=== PATIENT | female | born 1955 | race Caucasian/White ===

== ENCOUNTER 2021-01-22 07:04 | Inpatient (IN) ==
--- NOTE | 2020-12-26 09:41 | PAT Medication Instructions ---
Medication Instructions Date of Service December 26, 2020 Home Medications albuterol 90 mcg INHALATION Q4H PRN atorvastatin 10 mg PO HS bupropion HCl [Wellbutrin XL] 150 mg PO HS bupropion HCl [Wellbutrin XL] 300 mg PO HS calcium carbonate-vitamin D3 [Calcium 500 + D (D3)] 1 tab PO QAM docusate sodium [Colace] 100 mg PO HS fexofenadine 180 mg PO HS fluoxetine 10 mg PO HS fluoxetine 40 mg PO HS fluticasone propion-salmeterol [Advair Diskus] 1 inh INHALATION BID PRN mometasone [Nasonex] 2 spray INTRANASAL DAILY PRN montelukast 10 mg PO HS risedronate [Actonel] 150 mg PO WK Continue as directed risedronate [Actonel] 150 mg PO WK DO NOT take the morning of surgery calcium carbonate-vitamin D3 [Calcium 500 + D (D3)] 1 tab PO QAM Take morning of surgery With a small sip of water, OTHERWISE NOTHING TO EAT OR DRINK AFTER MIDNIGHT: albuterol 90 mcg INHALATION Q4H PRN (use if needed; please bring rescue inhaler with you to hospital day of surgery if possible) fluticasone propion-salmeterol [Advair Diskus] 1 inh INHALATION BID PRN (if needed) mometasone [Nasonex] 2 spray INTRANASAL DAILY PRN (if needed) Take evening before surgery albuterol 90 mcg INHALATION Q4H PRN (if needed) atorvastatin 10 mg PO HS bupropion HCl [Wellbutrin XL] 150 mg PO HS bupropion HCl [Wellbutrin XL] 300 mg PO HS docusate sodium [Colace] 100 mg PO HS fexofenadine 180 mg PO HS fluoxetine 10 mg PO HS fluoxetine 40 mg PO HS fluticasone propion-salmeterol [Advair Diskus] 1 inh INHALATION BID PRN (if needed) mometasone [Nasonex] 2 spray INTRANASAL DAILY PRN (if needed) montelukast 10 mg PO HS Other Notes If you have any questions please call us at [phone] or [phone] or [phone] or [phone]
--- NOTE | 2020-12-28 09:48 | Anesthesiology Consultation ---
Date of Service December 28, 2020 Assessment & Plan (1) Encounter for pre-operative examination: COVID screening: Per assessment on 12/28: Travel screen negative, no known COVID- 19 positive contacts or current COVID-19 related symptoms. Patient vaccinated. Surgeon arranging preop COVID testing. Awaiting results. Chart Review Chart Review: Acceptable Risk for Surgery (pending preop labs (being done at [facility])) and Patient seen in Pre Admission Testing Teaching & Discussion Pre-Anesthesia Teaching/Discussion Notes: Instructed NPO after midnight before surgery,except medications with 15 cc of water. Medication instructions provided according to the PAT guidelines. History Surgery Operation Date: 01/22/21 11:10 Proposed Procedures p Right Total Knee Arthroplasty - Bowen Cortez DO Height/Weight Height: 5 ft 3 in Weight: 85.4 kg Allergies Allergy/AdvReac Type Severity Reaction Status Date / Time ciprofloxacin [From Cipro] Allergy Severe Dizziness, Verified 12/28/20 10:11 emotional, "felt drunk" fentanyl Allergy Severe Itching Verified 12/27/20 16:24 codeine AdvReac Intermediate Hallucinati Verified 12/27/20 16:24 ons metronidazole AdvReac Unknown Dizziness, Verified 12/27/20 16:24 emotional Medications Home Medications Medication Instructions Recorded Confirmed Last Taken albuterol 90 mcg INHALATION Q4H PRN 12/26/20 12/26/20 Unknown atorvastatin 10 mg PO HS 12/26/20 12/26/20 Unknown bupropion HCl [Wellbutrin XL] 150 mg PO QAM 12/26/20 12/28/20 Unknown bupropion HCl [Wellbutrin XL] 300 mg PO QAM 12/26/20 12/28/20 Unknown calcium carbonate-vitamin D3 1 tab PO QAM 12/26/20 12/26/20 Unknown [Calcium 500 + D (D3)] docusate sodium [Colace] 100 mg PO HS 12/26/20 12/26/20 Unknown fexofenadine 180 mg PO HS 12/26/20 12/26/20 Unknown fluoxetine 10 mg PO HS 12/26/20 12/26/20 Unknown fluoxetine 40 mg PO HS 12/26/20 12/26/20 Unknown fluticasone propion-salmeterol 1 inh INHALATION BID PRN 12/26/20 12/26/20 Unknown [Advair Diskus] mometasone [Nasonex] 2 spray INTRANASAL DAILY PRN 12/26/20 12/26/20 Unknown montelukast 10 mg PO HS 12/26/20 12/26/20 Unknown risedronate [Actonel] 150 mg PO WK 12/26/20 12/26/20 Unknown Past Medical History Medical History Anxiety Depression Diaphragm injury Abdominal diaphragm puncture after a fall from counter (2011) s/p surgical repair Diverticular disease hx diverticulitis s/p bowel resection Hyperlipidemia Mild heartburn Obesity Osteopenia Seasonal asthma controlled Exercise / Class Metabolic Activity II 4-5 Yardwork/Stairs/Walk up hill (one FS (no CP, no SOB)) Past Family History Family History Other No family history of adverse response to anesthesia Past Surgical History Surgical History H/O kyphoplasty L2 kyphoplasty for fracture repair (01/2020 at [facility]) History of appendectomy History of bowel resection ~2009 History of colonoscopy History of laparotomy to repair a puncture of the diaphragm (2011 at [facility]) History of tonsillectomy S/P ERIK (total abdominal hysterectomy) with unilateral salping-oopherectomy Past Anesthesia History No Family Hx of Anesthesia Complications and Other Patient reports typically has low-normal BP. Patient states that she has been told post-operatively that she has had lower BP findings. Per patient, was monitored but no significant interventions needed. History of PONV No Hx of PONV and Hx of Motion Sickness (+ boats) Social History Smoking Status: Never smoker Do You Dip or Chew Tobacco: No Hx Alcohol Use: Yes Alcohol type: beer alcohol intake frequency: a few times a month Hx Substance Use: No substance use type: does not use Review of Systems Patient denies chest pain, shortness of breath, dyspnea on exertion, fever, chills, cough, wheezing, palpitations. Physical Exam Vital Signs VITALS BP 111/73 P 88 TEMP 98.3 SP02 95%RA RESP 18 PHYSICAL Full cervical extension range of motion. Full TMJ range of motion. TMD 2.5 finger breaths Mallampati Score 3 Dentition: intact, several crowns Lungs: clear throughout to auscultation Cardiac: regular rate and rhythm, no murmurs noted Spine: normal Carotid arteries: negative bruit Extremities: no edema Lab Results Anesthesia Preop Results Results Anesthesia Widget: Blood Type O Negative 12/28/20 Antibody Screen NEGATIVE 12/28/20 Testing Electrocardiogram Date: 12/28/20 Findings: + NSR @ (86) Chest X-Ray Date: 12/28/20 Atelectasis or scarring within left mid to lower lung. Compression fracture deformity within upper lumbar region, possible status post vertebroplasty. Please correlate above-mentioned findings with prior history. Known hx of recent L2 kyphoplasty fracture repair. Report to be forwarded to PCP for continuity of care.
--- NOTE | 2021-01-02 17:10 | History & Physical Report ---
Date of Service January 02, 2021 date of surgery: 01/22/21 Procedure: Right Total Knee Arthroplasty Assessment & Plan (1) Arthritis of right knee: Further care discussed with patient and at this point in time has failed conservative measures and would like to proceed with a right total knee r eplacement. Plan on discharge will be home with home health physical therapy. DVT prophalaxis with TEDs, SCDs and will also place on aspirin 81 mg p.o. b.i.d. for a month postop. Patient will have follow up appointment in our office two weeks post op for staple/suture removal and re-evaluation. Patient otherwise has no other questions or concerns. The risks and benefits have been discussed including, but not limited to, risk of infection, nerve injury, stiffness, loss of motion, failure to improve, etc. Reasonable outcomes and options of treatment were discussed. An explanation of appropriate alternatives to the procedure that may be advantageous were discussed and their risks and benefits, as well as the risks and benefits of not proceeding with treatment. I offered to answer any additional inquiries concerning the treatment involved. All the patient's questions were answered. The patient is agreeable, understanding of the treatment plan and alternatives, and wishes to proceed with the treatment plan. History of Present Illness Chief Complaint: Right knee pain Primary Care Provider: Mariano Fitzgerald MD Anh is a 65 year old female who complains of right knee pain, presents for pre-op evaluation prior to a right total knee replacement by Dr Cortez at [facility]. she complains of pain, decreased range of motion, instability and stiffness in her right knee. Currently the patient states that the symptoms are moderate- severe and is rated at 5/10. The pain is described as aching, sharp and throbbing. her symptoms are aggravated by ascending stairs, daily activities, first steps while awake walking. Prior NSAIDs include Motrin and has used Tylenol in the past. she has been treated with previous cortisone injections in the past without much relief. she has done PT as well as used a brace. Allergies Allergy/AdvReac Type Severity Reaction Status Date / Time ciprofloxacin [From Cipro] Allergy Severe Dizziness, Verified 12/28/20 10:11 emotional, "felt drunk" fentanyl Allergy Severe Itching Verified 12/27/20 16:24 codeine AdvReac Intermediate Hallucinati Verified 12/27/20 16:24 ons metronidazole AdvReac Unknown Dizziness, Verified 12/27/20 16:24 emotional Home Medications Medication Instructions Recorded Confirmed Type albuterol 90 mcg INHALATION Q4H PRN 12/26/20 12/26/20 History atorvastatin 10 mg PO HS 12/26/20 12/26/20 History bupropion HCl [Wellbutrin XL] 150 mg PO QAM 12/26/20 12/28/20 History bupropion HCl [Wellbutrin XL] 300 mg PO QAM 12/26/20 12/28/20 History calcium carbonate-vitamin D3 1 tab PO QAM 12/26/20 12/26/20 History [Calcium 500 + D (D3)] docusate sodium [Colace] 100 mg PO HS 12/26/20 12/26/20 History fexofenadine 180 mg PO HS 12/26/20 12/26/20 History fluoxetine 10 mg PO HS 12/26/20 12/26/20 History fluoxetine 40 mg PO HS 12/26/20 12/26/20 History fluticasone propion-salmeterol 1 inh INHALATION BID PRN 12/26/20 12/26/20 History [Advair Diskus] mometasone [Nasonex] 2 spray INTRANASAL DAILY PRN 12/26/20 12/26/20 History montelukast 10 mg PO HS 12/26/20 12/26/20 History risedronate [Actonel] 150 mg PO WK 12/26/20 12/26/20 History Past Med/Surg History Medical History Anxiety Depression Diaphragm injury Abdominal diaphragm puncture after a fall from counter (2011) s/p surgical repair Diverticular disease hx diverticulitis s/p bowel resection Hyperlipidemia Mild heartburn Obesity Osteopenia Seasonal asthma controlled Surgical History H/O kyphoplasty L2 kyphoplasty for fracture repair (01/2020 at [facility]) History of appendectomy History of bowel resection ~2009 History of colonoscopy History of laparotomy to repair a puncture of the diaphragm (2011 at [facility]) History of tonsillectomy S/P ERIK (total abdominal hysterectomy) with unilateral salping-oopherectomy Family History Other No family history of adverse response to anesthesia Social History Smoking Status: Never smoker Second Hand Exposure: No; Hx Alcohol Use: Yes Alcohol type: beer Hx Substance Use: No Preferred Language: Serbian Communication Ability: Effective Administrative Aide Required: No Beliefs That Will Affect Care: Faith Faith Beliefs: buddhist Current Living Situation: Spouse Feels Safe at Home: Yes Assistive Devices: Glasses Review of Systems Review of Systems: All systems reviewed & are unremarkable except as noted in HPI & below Constitutional: no fever, no chills and no sweats Respiratory: no cough and no dyspnea Cardiovascular: no chest pain, no dyspnea and no orthopnea Gastrointestinal: no abdominal pain, no nausea and no vomiting Musculoskeletal: as per Subjective / HPI Physical Exam Physical Exam: HT: 5ft 3in WT: 85.4kg Constitutional: WD/WN, vitals as above no acute distress Respiratory: normal respiratory effort, lungs clear to auscultation no res piratory distress, no labored breathing and does not use accessory muscles Cardiovascular: RRR, no murmur, no edema Gastrointestinal (Abdomen): normal bowel sounds, soft, nontender, no hepatosplenomegaly Musculoskeletal: Knee: + knee abnormal to inspection (Right Knee- ), + effusion (+1 effusion), + limited ROM of knee (ROM 0/3/110), + knee ROM with crepitation, + joint line tenderness (medial joint line) and + Alin's sign positive; no deformity, no skin erythema, no ecchymosis, no valgus laxity, no varus laxity, anterior drawer test negative, Anderson's sign negative and pivot shift test negative Results & Data Results & Data ([facility]) Diagnostic Findings Right Knee X-ray: Right knee series showing advanced degenerative changes to the right knee, narrowing of the joint space with bone spurring noted, findings showing joint space narrowing of the medial compartment and patello-femoral joint, osteophyte formation and subchondral sclerosis noted. overall varus alignment. no acute bony pathology noted.
[~2021-01-22 07:04] MED LIST: ACETAMINOPHEN 500 MG TAB PO SCH; BUPIVACAINE 0.25% 30 ML VIAL ONE; BUPIVACAINE 0.5 % 5 MG/1 ML PF 10ML VIAL ONE; CeleBREX 200 MG CAP PO SCH; EPINEPHrine INJ 1 MG/ML AMP ONE; FAMOTIDINE 20 MG TAB PO SCH; GABAPENTIN 300 MG CAP PO SCH; LR 500ML BOLUS, THEN 15ML/HR IV SCH; METOCLOPRAMIDE HCL 10 MG TABLET PO SCH; ROPIVACAINE 0.5% HCL/PF 150 MG, BUPIVACAINE 0.75% MPF 20 ML, EPINEPHrine 30MG/30ML (OR ... INFIL SCH; TRANEXAMIC ACID 1,000 MG **IV Intra-op IV SCH; TRANEXAMIC ACID 1,000 MG **IV Pre-op IV SCH; ceFAZolin 2000MG 2,000 MG/15 ML SYR IV SCH; oxyCODONE HCL 10 MG TABCR (OxyCONTIN) PO SCH
--- NOTE | 2021-01-22 08:37 | History & Physical Bridge Note ---
Date of Service January 22, 2021 History & Physical Bridge Note I have examined the patient, reviewed the History & Physical and in the interval since the performance of the History & Physical I have noted the following changes of clinical significance: no changes noted
[2021-01-22] MEDS ORDERED: LIDOCAINE 2% 2 ML VIAL/AMP(20MG/ML) INFIL ONE (08:55)
[2021-01-22] MEDS ORDERED: PROPOFOL IV EMULSION 10 MG/ML 20 ML VIAL IV ONE (08:55)
[2021-01-22] MEDS ORDERED: MIDAZOLAM HCL 1 MG/ML 2ML VIAL ONE (08:55)
[2021-01-22] MEDS ORDERED: ORTHO JOINT ANESTHETIC ONE (09:12)
[2021-01-22] MEDS ORDERED: BUPIVACAINE 0.25% 30 ML VIAL ONE (09:20)
[2021-01-22] MEDS ORDERED: ATROPINE SULFATE 0.1 MG/ML 10ML SYR IV PRN (09:23)
[2021-01-22] MEDS ORDERED: HYDROmorphone INJ 2 MG/ML SYR/VIAL IV PRN (09:23)
[2021-01-22] MEDS ORDERED: ePHEDrine sulfate 50 MG/ML AMP IV PRN (09:23)
[2021-01-22] MEDS ORDERED: ONDANSETRON INJ 2 MG/ML 2 ML VIAL IV PRN ×2 (09:23→12:37)
--- NOTE | 2021-01-22 10:44 | Operative Report ---
Post Operative Report Pre & Post Diagnosis Operation Date: 01/22/21 09:15 Pre-Op Diagnosis: Right Knee Osteoarthritis Post-Op Diagnosis: Right Knee Osteoarthritis I identified the patient and participated in the time-out.: Yes Procedure Operation Date: 01/22/21 09:15 Actual Procedures p Right Total Knee Arthroplasty(Right) utilizing [employer] persona 8 narrow femur C tibia 10 medial constrained polytwenty 8 oval patella- Bowen Cortez DO Surgeon Bowen Cortez DO [employer] AMBROSE Estimated Blood Loss 5 Findings Consistent with Post-Op Diagnosis Patient presents with severe end-stage tricompartmental degenerative joint disease [id number] eburnated bone subchondral sclerosis marginal osteophytes moderate to large effusion Specimens Bone and cartilage Drains Medium bore Hemovac Anesthesia Type MAC Spinal Regional Disposition Accompanied Patient To Recovery: No Disposition: Recovery Room Indications Patient presents with severe end-stage DJD failing attempted conservative management clinic physical therapy anti-inflammatories relative rest activity modification corticosteroid injection viscosupplementation the above intraoperat amor findings were noted Description of Procedure After proper prepping and draping of the Right lower extremity anterior midline incision was made over the region of the extensor extensor mechanism after meticulous hemostasis was obtained and maintained in subcutaneous tissues a medial parapatellar incision was made The patella was subluxed lateralward the medial lateral gutter were cleaned from any hypertrophic synovitis and scar tissue of the distal femoral block was placed and the distal femoral osteotomy cut was made subsequently the chamfers anterior and posterior osteotomy cuts were made utilizing the 4-in-1 block the tibia was subsequently subluxed anteriorward medial and ateral meniscal remnants were excised in their entirety remnants of the anterior and posterior cruciate ligaments were excised in their entirety excellent exposure of the proximal tibia was obtained the tibial osteotomy guide was placed on the proximal tibial osteotomy cut was made once again the knee was irrigated with copious amounts of sterile saline solution the patella was subsequently everted lateralward thickened scar tissue around the patella was removed the patella was subsequently cut utilizing a freehand technique and was drilled prepared for final preparation and placement of patella socially flexion-extension gaps were checked and the equal and symmetric trials were placed to the appropriate femoral and tibial trials with poly-spacer being placed for equal flexion and extension gaps and full range of motion including extension to 0 and flexion to 140 the trial components after having been taken to recovery range of motion was subsequently removed meticulous hemostasis was obtained and maintained subsequently a knee block injection of joint cocktail including ropivacaine 0.5% 150 mg. Bupivacaine 0.5% epinephrine 1-200,030 mL's toradol 30 mg dexamethasone 4 mg ketamine 10 mg clonidine 100 micrograms normal saline solution 30 mg was infiltrated into the soft tissues of the posterior knee medial lateral gutters and periosteal synovium special attention was paid to protect neurovascular structures at all times subsequently trial components having been removed the knee was irrigated with sterile saline solution. debris was removed the proximal tibia was subsequently prepared and was made ready for the placement of the tibial component tibial component was also cemented and tamped into position the femoral component was subsequently placed and cemented in the position the patellar component was subsequently cemented in position because hemostasis once again obtained and maintained wound having been thoroughly irrigated with debridement and debridement lavage was performed as well as a medial parapatellar incision closed with #1 Vicryl in interrupted fashion subcutaneous was closed with #2 Vicryl skin was closed with skin clips. PA-C was necessary for prepping and drapping as well as wound closure of deep fascia Sub cutaneous tissue and skin and was necessary for the case. A sterile compressive dressing was placed patient was taken to recovery in stable condition of report dictated by Diego I attest to the content of the Intraoperative Record and any orders documented therein. Any exceptions are noted below. I attest to the content of the Intraoperative Record and any orders documented therein. Any exceptions are noted below.
--- NOTE | 2021-01-22 12:02 | XRay Report ---
XR knee RT 1 or 2V routine HISTORY: 65 years-old Female Surgical Post Op right knee total joint arthroplasty COMPARISON: None TECHNIQUE: 2 views the right knee FINDINGS: Right knee total joint arthroplasty and patella resurfacing. Surgical drainage catheter with expected postoperative soft tissue swelling and deep tissue air. No acute fracture, alignment or unexpected o paque foreign body. IMPRESSION: Right knee total joint arthroplasty with expected postoperative changes. ACT 112: Negative or not required by law. The above report was generated using voice recognition software. It may contain grammatical, syntax o r spelling errors. Electronically signed by: Kieran Babin M.D. 01/22/2021 12:01 PM
[2021-01-22] MEDS ORDERED: diphenhydrAMINE Capsule 25 MG CAP PO PRN (12:37)
[2021-01-22] MEDS ORDERED: HYDROmorphone INJ 1 MG/ML SYRINGE IV PRN (12:37)
[2021-01-22] MEDS ORDERED: METOCLOPRAMIDE HCL INJ 5 MG/ML 2 ML VIAL IV PRN (12:37)
[2021-01-22] MEDS ORDERED: NALOXONE HCL 0.4 MG/1 ML VIAL/CARP IV PRN (12:37)
[2021-01-22] MEDS ORDERED: RISEDRONATE 150 MG PO SCH (12:37)
[2021-01-22] MEDS ORDERED: MAGNESIUM HYDROXIDE SUSP 30 ML UDC PO PRN (12:37)
[2021-01-22] MEDS ORDERED: SODIUM CHLORIDE 0.9% 1000ML 1,000 ML IV SCH (12:37)
[2021-01-22] MEDS ORDERED: bisacodyL 10 MG SUPP PR PRN (12:37)
[2021-01-22] MEDS ORDERED: ALBUTEROL HFA 8 GM INHALER INH PRN (12:40)
--- NOTE | 2021-01-22 12:48 | History & Physical Report ---
Date of Service January 22, 2021 Assessment & Plan (1) S/P total knee arthroplasty: This is a 65yo F with a PMH of dyslipidemia, depression, osteoarthritis and other medical problems listed below who is POD #0 s/p R TKA by Dr. Cortez. POD #0 s/p R TKA by Dr. Cortez Per ortho for pain control, wound care, anticoagulation and activities Monitor H&H (EBL: 5ml, pre-op hgb 13.9) Continue incentive spirometry, PT/OT when appropriate (2) Asthma: Stable. Continue Singulair,Advair, Albuterol inh PRN (3) Depression: Continue fluoxetine, Wellbutrin (4) Hyperlipidemia: Continue atorvastatin PCP: Luke Dispo: Per ortho Patient seen in collaboration with Dr. Elias. Please see addendum. Thank you for this consultation. We will follow the patient with you during their hospital stay. You can reach a [facility] via [place] Text. Admission and Anticipated Discharge Date Admission Date: January 22, 2021 History of Present Illness Chief Complaint: post op med mgmt Primary Care Provider: Artem Butler MD This is a 65yo F with a PMH of dyslipidemia, depression, osteoarthritis and other medical problems listed below who is POD #0 s/p R TKA by Dr. Cortez. Currently resting comfortably postoperatively. Tolerated lunch without issue. Denies any knee pain or paresthesias 2/2 effects of spinal anesthesia. Denies any fever, chills, lightheadedness, headache, chest pain, shortness of breath, nausea, vomiting, abdominal pain, dysuria, diarrhea constipation. Has not yet voided post operatively. Took all medications this morning without issue prior to surgery. Follows with Dr. Butler in outpatient setting. Allergies Allergy/AdvReac Type Severity Reaction Status Date / Time ciprofloxacin [From Cipro] Allergy Severe Dizziness, Verified 01/22/21 07:28 emotional, "felt drunk" fentanyl Allergy Severe Itching Verified 01/22/21 07:28 codeine AdvReac Intermediate Hallucinati Verified 01/22/21 07:28 ons metronidazole AdvReac Unknown Dizziness, Verified 01/22/21 07:28 emotional Home Medications Medication Instructions Recorded Confirmed Type albuterol 90 mcg INHALATION Q4H PRN 12/26/20 01/22/21 History atorvastatin 10 mg PO HS 12/26/20 01/22/21 History bupropion HCl [Wellbutrin XL] 150 mg PO QAM 12/26/20 01/22/21 History bupropion HCl [Wellbutrin XL] 300 mg PO QAM 12/26/20 01/22/21 History calcium carbonate-vitamin D3 1 tab PO QAM 12/26/20 01/22/21 History [Calcium 500 + D (D3)] docusate sodium [Colace] 100 mg PO HS 12/26/20 01/22/21 History fexofenadine 180 mg PO HS 12/26/20 01/22/21 History fluoxetine 10 mg PO HS 12/26/20 01/22/21 History fluoxetine 40 mg PO HS 12/26/20 01/22/21 History fluticasone propion-salmeterol 1 inh INHALATION BID PRN 12/26/20 01/22/21 History [Advair Diskus] mometasone [Nasonex] 2 spray INTRANASAL DAILY PRN 12/26/20 01/22/21 History montelukast 10 mg PO HS 12/26/20 01/22/21 History risedronate [Actonel] 150 mg PO MO@0900 12/26/20 01/22/21 History Past Med/Surg History Medical History (Updated 01/22/21 @ 12:58 by Lakisha Greenfield PA-C) Anxiety Asthma Depression Diaphragm injury Abdominal diaphragm puncture after a fall from counter (2011) s/p surgical repair Diverticular disease hx diverticulitis s/p bowel resection Hyperlipidemia Mild heartburn Obesity Osteopenia Seasonal asthma controlled Surgical History (Updated 01/22/21 @ 12:54 by Lakisha Greenfield PA-C) H/O kyphoplasty L2 kyphoplasty for fracture repair (01/2020 at [facility]) History of appendectomy History of bowel resection ~2009 History of colonoscopy History of laparotomy to repair a puncture of the diaphragm (2011 at [facility]) History of tonsillectomy S/P ERIK (total abdominal hysterectomy) with unilateral salping-oopherectomy Family History Other Asthma Cancer Heart disease No family history of adverse response to anesthesia Social History Smoking Status: Never smoker Second Hand Exposure: No; Do You Dip or Chew Tobacco: No; Tobacco Cessation Education Requested by Patient: No Hx Alcohol Use: Yes Alcohol type: beer Hx Substance Use: No Preferred Language: Italian Communication Ability: Effective 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 Physical Exam Physical Exam: General Appearance: WD/WN, vitals as above, NAD, sitting up in bed, pleasant, conversing easily Head: normocephalic, atraumatic Eyes: normal inspection, PERRL, conjunctivae normal, anicteric sclerae ENT: external ear and nose normal, oropharynx normal Neck: normal visual inspection, trachea midline, no thyromegaly Respiratory: normal respiratory effort, lungs clear to auscultation, no wheeze, rales, rhonchi. No accessory muscle use Cardiovascular: regular rate, rhythm, no murmur, normal peripheral pulses, no BLE edema. Vessels: no JVD Chest: normal inspection of chest Abdomen/GI: normal bowel sounds, soft, nontender, no hepatosplenomegaly Extremities/Musculoskeletal: + R knee with surgical dressing in place and ice in place. Hemovac visualized. No cyanosis or clubbing, extremities motor strength 5/5 in LLE (mvmt of RLE limited at time of exam 2/2 effects of spinal anesthesia) Neurologic: PERRL, EOMI, accommodation nl, no face palsy, no dysarthria, CN's II-XI intact bilaterally and moves all extremities Psychiatric: A+Ox3, euthymic affect Skin: no rashes, normal color, warm/dry Results & Data Results & Data ([facility]) Vital Signs (Past 12 Hours) Vital Signs Temp Pulse Pulse Resp BP BP Pulse Ox 01/22/21 12:37 36.5 C 70 16 98/61 L 97 01/22/21 12:20 71 16 96/55 L 97 01/22/21 12:10 36.4 C L 80 16 102/53 L 97 01/22/21 12:00 69 16 98/62 L 98 01/22/21 11:50 72 16 100/51 L 96 01/22/21 11:40 73 16 91/62 L 95 01/22/21 11:30 79 16 105/64 93 01/22/21 11:23 36.7 C 81 16 110/65 98 01/22/21 07:38 36.8 C 79 18 127/68 94 Code Status & VTE Plan VTE Prophylaxis Plan VTE Prophylaxis will be ordered: Yes Supervising Physician Co-Signing Physician Notes Attending addendum: The patient was seen and examined in medical floor She is a 65 years old female with past medical history of depression, hyperlipidemia and osteoarthritis apparently underwent right TKA by Dr. Cortez She remains stable and complains some pain in the right knee with numbness involving the right leg and foot Denies any chest pain, palpitation, any shortness of breath, any abdominal pain, nausea and or vomiting On examination Remains stable medical floor Hemodynamically stable with systolic blood pressure of 97 Chest-clear to auscultate bilaterally Heart-S1, S2, no murmur Abdomen-benign Extremities-trace edema on the right none on the left Her labs, imaging studies reviewed Status post right TKA with history of asthma, depression and hyperlipidemia Medically stable Will monitor hemoglobin and electrolytes Agree with assessment and plan as outlined above by ELMER Burgos DR
[2021-01-22] MEDS ORDERED: FLUTICASONE/VILANTEROL 200/25MCG 14 PUFFS/INHALER INH PRN (13:15)
[2021-01-22] MEDS ORDERED: FLUTICASONE PROPIONATE NA SPR 16 GM BTL PRN (13:18)
--- NOTE | 2021-01-22 13:29 | Anesthesiology Progress Note ---
Date of Service January 22, 2021 Anesthesia Post Procedure Vital Signs Vital Signs: Temp Pulse Pulse Resp BP BP Pulse Ox 01/22/21 13:03 36.5 C 82 16 92/60 L 95 01/22/21 12:37 36.5 C 70 16 98/61 L 97 01/22/21 12:20 71 16 96/55 L 97 01/22/21 12:10 36.4 C L 80 16 102/53 L 97 01/22/21 12:00 69 16 98/62 L 98 01/22/21 11:50 72 16 100/51 L 96 01/22/21 11:40 73 16 91/62 L 95 01/22/21 11:30 79 16 105/64 93 01/22/21 11:23 36.7 C 81 16 110/65 98 01/22/21 07:38 36.8 C 79 18 127/68 94 Transfer of Care Handoff Completed per policy Notes Mental Status: alert / awake / arousable and participated in evaluation Patient Amnestic to Procedure: Yes Nausea / Vomiting: adequately controlled Pain: adequately controlled Airway Patency, RR, SpO2: stable & adequate BP & HR: stable & adequate Hydration State: stable & adequate Anesthetic Complications: no major complications apparent and Pt Satisfied with anesthetic care
[2021-01-22] MEDS: ACETAMINOPHEN 500 MG TAB PO SCH ×2 (14:07→21:05)
[2021-01-22] MEDS: KETOROLAC TROMETHAMINE 15 MG/ML VIAL IV SCH ×2 (14:07→19:40)
[2021-01-22] MEDS: ceFAZolin 2000MG 2,000 MG/15 ML SYR IV SCH (18:02)
[2021-01-22] MEDS ORDERED: FEXOFENADINE HCL 180 MG TAB PO SCH (21:00)
[2021-01-22] MEDS ORDERED: ATORVASTATIN 10 MG TAB PO SCH (21:00)
[2021-01-22] MEDS ORDERED: SENNA 8.6 MG TAB PO SCH (21:00)
[2021-01-22] MEDS ORDERED: FLUoxetine HCL 20 MG CAP PO SCH (21:00)
[2021-01-22] MEDS ORDERED: MONTELUKAST SODIUM 10 MG TABLET PO SCH (21:00)
[2021-01-22] MEDS ORDERED: FLUoxetine HCL 10 MG CAP PO SCH (21:00)
[2021-01-22] MEDS: oxyCODONE HCL IR 5 MG TAB (IMMEDIATE RELEASE) PO PRN (21:05)
[2021-01-22] MEDS: DOCUSATE SODIUM 100 MG CAP PO SCH (21:06)
[2021-01-22] MEDS: ASPIRIN 81 MG ECTAB PO SCH (21:06)
[2021-01-23] MEDS: oxyCODONE HCL IR 5 MG TAB (IMMEDIATE RELEASE) PO PRN ×4 (01:52→10:42)
[2021-01-23] MEDS: ceFAZolin 2000MG 2,000 MG/15 ML SYR IV SCH (01:52)
[2021-01-23] MEDS: KETOROLAC TROMETHAMINE 15 MG/ML VIAL IV SCH ×2 (01:52→07:54)
[2021-01-23] MEDS: ACETAMINOPHEN 500 MG TAB PO SCH (05:28)
[2021-01-23 05:36] LABS: Hematocrit (blood only) 34.8 % (37-47); Hemoglobin 11.7 g/dL (12.0-16.0); Mean Corpuscular Hemoglobin 29.5 pg (25-34); Mean Corpuscular Hgb Conc 33.6 g/dL (32-36); Mean Corpuscular Volume 87.9 fL (80-100); Mean Platelet Volume 10.5 fL (7.4-10.4); Platelet Count 171 K/uL (130-400); RDW Standard Deviation 45.4 fL (36.4-46.3); Red Blood Count 3.96 M/uL (4.2-5.4); White Blood Count 11.41 K/uL (4.8-10.8)
[2021-01-23] MEDS ORDERED: LR 500ML BOLUS, THEN 15ML/HR IV SCH (06:00)
[2021-01-23 06:04] LABS: BUN Creatinine Ratio 16.9 (10-20); Calcium 8.4 mg/dl (8.5-10.1); Creatinine Clr Calc Pharmacy 63.9 ml/min; Est GFR (African American) 78.3 ml/min; Est GFR (Non-African American) 67.5 ml/min; Potassium 4.4 mmol/L (3.5-5.1)
--- NOTE | 2021-01-23 07:22 | Orthopedic Progress Note ---
Date of Service January 23, 2021 Assessment & Plan Admission and Anticipated Discharge Date Admission Date: January 22, 2021 POD #1 s/p Right TKA pt/ot dvt proph with SAROJ/SCD/ASA plan for d/c home with home health PT, recheck after PT today. Subjective POD #1 s/p Right TKA Review of Systems Constitutional: no fever, no chills and no sweats Respiratory: no cough and no dyspnea Cardiovascular: no chest pain and no dyspnea Gastrointestinal: no abdominal pain, no nausea and no vomiting Physical Exam Constitutional: WD/WN, vitals as above no acute distress Musculoskeletal: Right Leg: NVDI, calf SNT, negative sheng sign. DP palpable, able to wiggle toes/ankle movement without difficulty. dressing clean dry and intact. Results & Data ([facility]) Vital Signs (Past 12 Hours) Vital Signs Temp Pulse Resp BP Pulse Ox 01/23/21 03:00 36.8 C 70 18 130/80 98 01/22/21 22:55 36.4 C L 85 16 98/62 L 95 01/22/21 19:38 36.8 C 78 18 108/69 91 Laboratory Results Laboratory Results WBC 11.41 K/uL (4.8-10.8) H 01/23/21 04:40 RBC 3.96 M/uL (4.2-5.4) L 01/23/21 04:40 Hgb 11.7 g/dL (12.0-16.0) L 01/23/21 04:40 Hct 34.8 % (37-47) L 01/23/21 04:40 MCV 87.9 fL (80-100) 01/23/21 04:40 MCH 29.5 pg (25-34) 01/23/21 04:40 MCHC 33.6 g/dL (32-36) 01/23/21 04:40 RDW Std Deviation 45.4 fL (36.4-46.3) 01/23/21 04:40 RDW Coeff of Dwight 14.0 % (11.5-14.5) 01/23/21 04:40 Plt Count 171 K/uL (130-400) 01/23/21 04:40 MPV 10.5 fL (7.4-10.4) H 01/23/21 04:40 Sodium 140 mmol/L (136-145) 01/23/21 04:40 Potassium 4.4 mmol/L (3.5-5.1) 01/23/21 04:40 Chloride 109 mmol/L (98-107) H 01/23/21 04:40 Carbon Dioxide 29 mmol/L (21-32) 01/23/21 04:40 Anion Gap 2.0 (3-11) L 01/23/21 04:40 BUN 15 mg/dl (7-18) 01/23/21 04:40 Creatinine 0.89 mg/dl (0.6-1.2) 01/23/21 04:40 Est Cr Clr Drug Dosing 63.9 ml/min 01/23/21 04:40 Est GFR ( Amer) 78.3 ml/min 01/23/21 04:40 Est GFR (Non-Af Amer) 67.5 ml/min 01/23/21 04:40 BUN/Creatinine Ratio 16.9 (10-20) 01/23/21 04:40 Glucose 92 mg/dl (70-99) 01/23/21 04:40 Calcium 8.4 mg/dl (8.5-10.1) L 01/23/21 04:40 COVID-19 Eval Order Covid19 IDNow [facility] 01/22/21 Unknown SARS-CoV-2, RNA, NAAT NEGATIVE (NEGATIVE) 01/22/21 Unknown Impressions Knee X-Ray 01/22/21 11:47 XR knee RT 1 or 2V routine HISTORY: 65 years-old Female Surgical Post Op right knee total joint ar throplasty COMPARISON: None TECHNIQUE: 2 views the right knee FINDINGS: Right knee total joint arthroplasty and patella resurfacing. Surgical drainage catheter with expected postoperative soft tissue swelling and deep tissue air. No acute fracture, alignment or unexpected opaque foreign body. IMPRESSION: Right knee total joint arthroplasty with expected postoperative changes. ACT 112: Negative or not required by law. The above report was generated using voice recognition software. It may contain grammatical, syntax or spelling errors. Electronically signed by: Kieran Babin M.D. 01/22/2021 12:01 PM Diagnostic Findings XR knee RT 1 or 2V routine HISTORY: 65 years-old Female Surgical Post Op right knee total joint arthroplasty COMPARISON: None TECHNIQUE: 2 views the right knee FINDINGS: Right knee total joint arthroplasty and patella resurfacing. Surgical drainage catheter with expected postoperative soft tissue swelling and deep tissue air. No acute fracture, alignment or unexpected opaque foreign body.
[2021-01-23] MEDS: ASPIRIN 81 MG ECTAB PO SCH (07:52)
[2021-01-23] MEDS: DOCUSATE SODIUM 100 MG CAP PO SCH (07:53)
[2021-01-23] MEDS ORDERED: CALCIUM 600MG + VIT D 400 IU TAB PO SCH (09:00)
[2021-01-23] MEDS ORDERED: buPROPion XL 300 MG TABCR PO SCH (09:00)
[2021-01-23] MEDS ORDERED: MULTIVITAMIN TAB PO SCH (09:00)
[2021-01-23] MEDS ORDERED: buPROPion XL 150 MG TABCR PO SCH (09:00)
--- NOTE | 2021-01-23 11:01 | Hospitalist Progress Note ---
Date of Service January 23, 2021 Assessment & Plan (1) S/P total knee arthroplasty: (2) Asthma: (3) Depression: (4) Hyperlipidemia: Plan: DC Home today, s/p R TKA Labs checked ROS-No Headache, No Visual Changes, No Nausea, No Vomiting, No Fever, No Chills, No Neck Pain or Stiffness, No Chest Pain, No Palpitations, No SOB, No EDMONDS, No Cough, No Sputum, No Wheezing, No Abdominal Pain, No Diarrhea, No Hematemesis, No Hemoptysis, No Unexpected Weight Loss, No Flank pain, No Melena, No Hematochezia, No Frequency, No Urgency, No Burning, No Hematuria, No Rashes, No Diaphoresis. Appetite is Normal, Sore R Knee Physical Exam Gen-AAO x 3, NAD, Afebrile Head-NCAT, EOMI, PERRLA, Anicteric Sclera, No Posterior Pharyngeal Erythema Neck-Supple, No JVD, No Thyromegaly, No Masses, No LAD, No Bruits Lungs-Clear to Auscultation Bilaterally, No Rales, No Rhonchi, No Wheezing, No Crepitus Chest-No S4, +S1, +S2, No S3, No Murmurs, No Rubs, No Gallops, No Ectopy Abdomen-Soft, Bowel Sounds Present, Non Tender, Non Distended, No Hepatomegaly, No Splenomegaly, No Palpable Masses, No Rebound, No Rigidity, No Guarding Musculoskeletal-Full Range of Motion Bilaterally, No CVAT Extremities-No Cyanosis, No Clubbing, Tender r Knee Nuero-Cranial Nerves II-XII grossly intact, Motor WNL, DTRs WNL, Strength WNL, Non Focal Psych-Normal Mood Admission and Anticipated Discharge Date Admission Date: January 22, 2021 Results & Data Results & Data ([facility]) Vital Signs (Past 12 Hours) Vital Signs Temp Pulse Pulse Resp BP Pulse Ox 01/23/21 07:42 36.7 C 74 16 114/69 95 01/23/21 03:00 36.8 C 70 18 130/80 98
--- NOTE | 2021-01-23 18:32 | Discharge Summary ---
Date of Service date of discharge: January 23, 2021 date of admission: 01-22-21 Admission HPI Per Admitting Provider This is a 65yo F with a PMH of dyslipidemia, depression, osteoarthritis and other medical problems listed below who is POD #0 s/p R TKA by Dr. Cortez. Currently resting comfortably postoperatively. Tolerated lunch without issue. Denies any knee pain or paresthesias 2/2 effects of spinal anesthesia. Denies any fever, chills, lightheadedness, headache, chest pain, shortness of breath, nausea, vomiting, abdominal pain, dysuria, diarrhea constipation. Has not yet voided post operatively. Took all medications this morning without issue prior to surgery. Follows with Dr. Butler in outpatient setting. Principal Diagnosis right knee arthritis Discharge Exam Musculoskeletal NVDI, calf SNT, negative sheng sign. DP palpable, able to wiggle toes/ankle movement without difficulty. dressing clean dry and intact. expected post- operative bruising noted. Discharge Data Allergies Allergy/AdvReac Type Severity Reaction Status Date / Time ciprofloxacin [From Cipro] Allergy Severe Dizziness, Verified 01/22/21 07:28 emotional, "felt drunk" fentanyl Allergy Severe Itching Verified 01/22/21 07:28 codeine AdvReac Intermediate Hallucinati Verified 01/22/21 07:28 ons metronidazole AdvReac Unknown Dizziness, Verified 01/22/21 07:28 emotional Consultations 01/17/21 14:55 Consult Hospitalist Routine Procedures Performed Operation Date: 01/22/21 09:15 Actual Procedures p Right Total Knee Arthroplasty(Right) - Bowen Cortez, Ordered Studies 01/22/21 05:00 US - OR guided needle placemen Routine Total Time Total Time Spent Total Time Spent (In Minutes): 20 Discharge Plan Discharge Items Patient Disposition: Home - Home Health Services Reason For Visit: Right Knee Osteoarthritis Discharge Diagnosis: RIGHT TOTAL KNEE REPLACEMENT Condition on Discharge: Good Activity: Per Instructions section Lifting: Wait until after follow-up appointment Weightbearing Comment: WBAT WITH WALKER Non-emergency contact: Surgeon Call non-emergency contact if: you have any medication questions, your temperature is above 101, your wound has increased redness, your wound has increased drainage and your wound pain has increased Follow-up/Referrals: Artem Butler MD [Primary Care Provider] - Diet: Regular Addtl Attending Provider Instructions: ACTIVITY RECOMMENDATIONS: SELF CARE INSTRUCTIONS AFTER TOTAL KNEE REPLACEMENT A. You may need to continue a physical therapy program after discharge from the hospital. There are several options available to you. Your doctor will assist you in selecting the best one for you. 1. An out-patient facility 2 to 3 times a week for therapy or home therapy. 2. Continue working on all exercises taught to you in the hospital. Your goals should be to increase bending of your knee to 90 degrees and beyond and to fully straighten your knee. B. You may progress at your own pace from walking with a walker or crutches to a cane; then to no assistive devices. C. Make walking a part of your daily routine. Be up as much as comfortable with rest periods throughout the day. Rest with leg elevation is very important. Use the ice wrap frequently for the first 3-4 weeks. D. There are no restrictions on activities. You may ride in a car, shop, participate in high school agriculture teacher and all social activities. E. Wear the long elastic stockings (SAROJ hose) 20 hours a day for 2 weeks after surgery. They can be removed several times a day for laundering and for a bath. F. You may shower, no tub baths until cleared by your doctor. SPECIAL CARE INSTRUCTIONS: VERY IMPORTANT TO READ AND REVIEW A. There are a few signs you need to watch for after you are home. Call [facility] if you notice any of the followin. Increased severe knee pain. Some pain is expected especially when you exercise. 2. Increased swelling in your leg or knee; pain or swelling of the calf muscle in either lower leg. 3. Any fluid drainage from the incision. 4. Shortness of breath or chest pain. B. Please call [facility] at if you have any concerns or questions about your operation or recovery. The doctor or his nurse will return your call promptly. C. You must take antibiotics before dental work, bladder, bowel or other surgery. Your doctor will provide you with a permanent care to carry describing this precaution. IMPORTANT: * REMEMBER TO TAKE ASPIRIN, 81 MG, TWICE DAILY FOR 4 WEEKS UNLESS OTHERWISE DIRECTED. THIS IS YOUR BLOOD THINNER. * HIGH RISK PATIENTS MAY BE PRESCRIBED A STRONGER BLOOD THINNER. THIS WILL BE PROVIDED AT DISCHARGE. * CALL IF INCREASED PAIN, REDNESS, DRAINAGE OR FEVER GREATER THAT 101. * WEAR SAROJ HOSE 20 HOURS PER DAY FOR 2 WEEKS. * DERMABOND Prineo- This is a mesh tape dressing that is covered with glue. It should remain in place until the incision is properly healed, usually 10-14 days. This dressing is designed to naturally slough off. You may trim the excess mesh tape as it peels off. Incision may be briefly wet in a shower. Dry immediately by blotting with a clean, dry towel. Do not bath or swim until instructed by your doctor. Do not scratch, rub, or pick at the dressing. Do not apply any topical ointments or lotions until dressing is completely removed and/or instructed by your doctor. There may be a small piece of suture material at one end of your incision. Do not pull or trim this. If it is bothersome or catching on clothing, you may cover it with a band-aid. IF INCISION IS LEAKING THROUGH DRESSING, CALL THE OFFICE . FOLLOW UP VISIT: If appointment is not already scheduled: Please call [facility] to make a follow-up appointment for 2 weeks after your surgery at . Pending Studies at Discharge: No Stand-Alone Forms: My [facility] Medications and DC Order Prescriptions: New celecoxib [Celebrex] 200 mg Capsule 200 mg PO BID 30 Days Qty: 60 RF: 0 aspirin 81 mg Tablet,Delayed Release (Dr/Ec) 81 mg PO BID 30 Days Qty: 60 RF: 0 acetaminophen [Tylenol Extra Strength] 500 mg Tablet 1,000 mg PO Q8 21 Days Qty: 126 RF: 0 oxycodone 5 mg Tablet 5 - 10 mg PO Q6H PRN (Reason: pain) Qty: 30 RF: 0 ondansetron HCl [Zofran] 4 mg tablet 8 mg PO Q8H PRN (Reason: nausea and vomiting) Qty: 20 RF: 0 cefadroxil 500 mg capsule 500 mg PO BID 14 Days Qty: 28 RF: 0 Continued fluticasone propion-salmeterol [Advair Diskus] 250-50 mcg/dose Blister With Device 1 inh INHALATION BID PRN (Reason: sob) RF: 0 fexofenadine 180 mg Tablet 180 mg PO HS RF: 0 fluoxetine 10 mg Capsule 10 mg PO HS RF: 0 mometasone [Nasonex] 50 mcg/actuation [place],Non-Aerosol 2 spray INTRANASAL DAILY PRN (Reason: sinus congestion) RF: 0 montelukast 10 mg Tablet 10 mg PO HS RF: 0 albuterol 90 mcg/actuation Aerosol 90 mcg INHALATION Q4H PRN (Reason: sob) RF: 0 fluoxetine 20 mg Capsule 40 mg PO HS RF: 0 bupropion HCl [Wellbutrin XL] 300 mg Tablet Extended Release 24 Hr 300 mg PO QAM RF: 0 bupropion HCl [Wellbutrin XL] 150 mg Tablet Extended Release 24 Hr 150 mg PO QAM RF: 0 risedronate [Actonel] 150 mg Tablet 150 mg PO MO@0900 RF: 0 calcium carbonate-vitamin D3 500 mg(1,250mg) -125 unit Tablet 1 tab PO QAM RF: 0 atorvastatin 10 mg Tablet 10 mg PO HS RF: 0 docusate sodium [Colace] 100 mg Capsule 100 mg PO HS RF: 0 Discharge Orders: Discharge Order (Routine); Ordered 01/23/21 Ordered By: Elmo Gastelum/Other Patient Handouts: Total Knee Replacement, After Knee Replacement: Back at Home, Knee Replace First Month, Knee Replace Swelling, Knee Replace After Surgery Admission Data Admit Date/Time: 01/22/21 11:47 Attending Provider: Bowen Cortez Admit Provider: Bowen Cortez Primary Care Provider: Artem Butler Other Providers: Ila Khan ; [facility] ; Randolph Nicole Other Interventions: Discharge Summary Assessment (RN) Last Done: 01/23/21 11:52
[2021-01-23] MEDS ORDERED: CeleBREX 200 MG CAP PO SCH (21:00)
== END 2021-01-23 14:24 | disposition home health service (06) | DRG 470 ==
LOC: 3E 07:04 → ASU 07:04 → OBSVTOIN 11:47